=== PATIENT | female | born 1965 | race Two or more races ===

== ENCOUNTER 2017-07-24 09:36 | Emergency (ER) | payer MEDICARE, MEDICAID ==
[2017-07-24] MEDS ORDERED: Pseudoephedrine HCL ER TAB* 120 MG PO ONE (10:16)
[2017-07-24 11:01] VITALS: BP 121/81
--- NOTE | 2017-07-24 11:03 | ED ---
Throat Pain/Nasal Congestion - HPI Summary HPI Summary: Pt here w/ URI sx x few days. Yesterday, Lt ear started hurting - persist today. Sneezing, coughing (dry - non-productive), nasal congestion, ST ( dysphagia), nausea, low grade BARON. Denies fever, chills, vomiting, ab pain, neck stiffness, rash. She tried dayquil today and sx are little better. Imms are UTD -no sick contacts to report. - History of Current Complaint Chief Complaint: EDGeneral Time Seen by Provider: 07/24/17 10:08 Hx Obtained From: Patient - Allergies/Home Medications Allergies/Adverse Reactions: Allergies Allergy/AdvReac Type Severity Reaction Status Date / Time Ibuprofen Allergy Mild Edema Verified 11/02/15 15:18 Latex Allergy Hives Verified 11/02/15 15:18 PMH/Surg Hx/FS Hx/Imm Hx Previously Healthy: Yes Endocrine/Hematology History: Reports: Hx Anemia Denies: Hx Anticoagulant Therapy, Hx Diabetes, Hx Thyroid Disease Cardiovascular History: Denies: Hx Hypertension, Hx Pacemaker/ICD Respiratory History: Denies: Hx Asthma, Hx Chronic Obstructive Pulmonary Disease (COPD) History: Denies: Hx Renal Disease Sensory History: Denies: Hx Contacts or Glasses, Hx Hearing Aid Opthamlomology History: Denies: Hx Contacts or Glasses Neurological History: Reports: Hx Headaches, Hx Migraine - 3 X PER MONTH Denies: Hx Dementia, Hx Seizures Psychiatric History: Reports: Hx Anxiety - ON MEDICATION FOR, Hx Depression Denies: Hx Panic Disorder, Hx Substance Abuse - Surgical History Surgery Procedure, Year, and Place: 1989. Ever breast reduction 2001. Cholecystectomy due to stones 2003. Tubal ligation 1993. hysterectomy Hx Anesthesia Reactions: No Infectious Disease History: No Infectious Disease History: Denies: Hx Hepatitis, Hx Human Immunodeficiency Virus (HIV), Traveled Outside the [place] in Last 30 Days - Social History Occupation: Employed Full-time Lives: With Family Alcohol Use: None Hx Substance Use: No Substance Use Type: Reports: None Hx Tobacco Use: Yes Smoking Status (MU): Current Every Day Smoker Amount Used/How Often: 3-7 cigs per day Review of Systems Constitutional: Negative Eyes: Negative Positive: Sore Throat, Ear Ache, Nasal Discharge Cardiovascular: Negative Positive: Cough. Negative: Shortness Of Breath Positive: Nausea. Negative: Abdominal Pain, Vomiting, Diarrhea Positive: no symptoms reported Musculoskeletal: Negative Skin: Negative Positive: Headache - se HPI. Negative: Weakness, Paresthesia, Numbness, Syncope , Slurred Speech Psychological: Normal All Other Systems Reviewed And Are Negative: Yes Physical Exam Triage Information Reviewed: Yes Vital Signs On Initial Exam: Initial Vitals Temp Pulse Resp BP Pulse Ox 97.4 F 93 20 136/70 98 07/24/17 09:39 07/24/17 09:39 07/24/17 09:39 07/24/17 09:39 07/24/17 09:39 Vital Signs Reviewed: Yes Appearance: Positive: Well-Appearing, No Pain Distress, Well-Nourished Skin: Positive: Warm, Dry Head/Face: Positive: Normal Head/Face Inspection - sinuses NTTP Eyes: Positive: Normal, EOMI, Conjunctiva Clear. Negative: Conjunctiva Inflammed, Discharge ENT: Positive: Hearing grossly normal, Pharyngeal erythema - mild - no edema, Nasal congestion - erythema, mucous, edema, TM red - Lt TM w/ erythema and clear fluid w/ bubble - no hyperemia, no d/c, no lesions appreciated, no d/c, NTTP; mastoid NTTP. Negative: Tonsillar swelling, Tonsillar exudate Neck: Positive: Supple, No Lymphadenopathy, Tenderness @ - Lt cc TTP Respiratory/Lung Sounds: Positive: Clear to Auscultation, Breath Sounds Present. Negative: Rales, Rhonchi, Stridor, Wheezes Cardiovascular: Positive: Normal, RRR, S1, S2 Abdomen Description: Positive: Nontender, No Organomegaly, Soft Bowel Sounds: Positive: Present Musculoskeletal: Positive: Normal, Strength/ROM Intact Neurological: Positive: Normal, Sensory/Motor Intact, Alert, Oriented to Person Place, Time, CN Intact II-III Psychiatric: Positive: Normal - [place] Coma Scale Coma Scale Total: 15 Diagnostics - Vital Signs Vital Signs Temp Pulse Resp BP Pulse Ox 07/24/17 09:39 97.4 F 93 20 136/70 98 - Laboratory Lab Statement: Any lab studies that have been ordered have been reviewed, and results considered in the medical decision making process. EENT Course/Dx - Course Course Of Treatment: Suspect viral URI w/ secondary eustachian tube dysfunction from congestion/edema of upper airways. SUggested conservative care and f/u w/ PCP if pain in Lt ear persists or worsens. - Diagnoses Provider Diagnoses: Eustachian tube dysfunction, Acute serous otitis media of left ear Discharge - Discharge Plan Condition: Stable Disposition: HOME Patient Education Materials: Upper Respiratory Infection (ED), Serous Otitis Media (ED) Forms: *Work Release Referrals: Steve Holden MD [Primary Care Provider] - Additional Instructions: You appear to have viral URI Try the following for comfort care: Nasal wash (netti pot) & throat gargle 2 x day with 8 ounces of warm water + 1/ 4 teaspoon of salt Sudafed for decongestion to help with ear pain, prevent bacterial infection of inner ear Afrin nasal for congestion - DO NOT USE MORE THAN PRESCRIBED IN DIRECTIONS Drink 60+ ounces of water daily Sleep 8+ hours per night Avoid Dairy and sugar Hot herbal/decaf tea with lemon & honey Chicken broth (preferably organic, free range chicken) Humidifier in house, but especially near bed at night Try a facial steam with or without eucalyptus essential oil - Prem vapor rub Cough drops Consider taking Vitamin D3 5,000iu and Vitamin C 1,000mg every day during illness *If symptoms persist or worsen, follow-up with PCP *If you develop chest pain, difficulty breathing or swallowing, return to ED
== END 2017-07-24 11:47 | disposition home or self-care (01) ==
LOC: ED 09:36
DX: H69.90 Unspecified Eustachian tube disorder, unspecified ear (principal); H65.02 Acute serous otitis media, left ear; J02.9 Acute pharyngitis, unspecified; H92.09 Otalgia, unspecified ear; F17.210 Nicotine dependence, cigarettes, uncomplicated
CPT/HCPCS: 87651; 99282; A9270-GY

== ENCOUNTER 2017-10-26 12:52 | Emergency (ER) | payer MEDICARE, MEDICAID ==
[2017-10-26] MEDS ORDERED: Cyclobenzaprine TAB* 10 MG PO ONE (17:04)
[2017-10-26] MEDS ORDERED: Naproxen TAB* 250 MG PO ONE (17:05)
[2017-10-26 17:29] LABS: Urine Appearance Clear; Urine Blood 1+ (Negative); Urine Color Straw; Urine Ketones Negative (Negative); Urine Protein Negative (Negative); Urine Specific Gravity 1.003 (1.010-1.030); Urine Urobilinogen Negative (Negative)
[2017-10-26 18:04] VITALS: BP 142/80
--- NOTE | 2017-10-26 23:20 | ED ---
Back Pain - HPI Summary HPI Summary: Patient is a 52-year-old female with a history of herniated disks to which she collects disability for a ride to the ED with left-sided lower back pain. Denies any urinary sit symptoms including obstructive symptoms. She has had this in the past and has tried heat with mild relief. She feels as though it is spasming, pain is 3 out of 10, worse with sitting up straight or lying flat and better with standing. Denies any fevers, sweats, chills. Denies any numbness or tingling. Denies bladder or bowel dysfunction. She denies any spinal tenderness to palpation. She has not tried any medications for relief. She has been otherwise healthy, and denies any recent illness. Denies any known injury or trauma. Denies any history of kidney pathology or urinary symptoms. - History of Current Complaint Chief Complaint: EDBackInjuryPain Stated Complaint: BACK PAIN Time Seen by Provider: 10/26/17 15:18 Hx Obtained From: Patient Onset/Duration: Sudden Onset Onset/Duration: Started Hours Ago Timing: Constant Severity Initially: Moderate Severity Currently: Moderate Pain Intensity: 4 Pain Scale Used: 0-10 Numeric Character: Aching Aggravating Symptom(s): Movement, Bending Alleviating Symptom(s): Rest, Position Associated Signs And Symptoms: Positive: Negative. Negative: Swelling, Redness , Bruising, Numbness, Tingling, Abdominal Pain, Flank Pain, Bladder Incontinence , Bowel Incontinence, Weight Loss, Pain with Weight Bearing Related History: Occupational Injury, Previous Back Injury - Risk Factors AAA Risk Factors: Negative TAD Risk Factors: Negative Cauda Equina Risk Factors: Negative Epidural Abscess Risk Factors: Negative - Allergies/Home Medications Allergies/Adverse Reactions: Allergies Allergy/AdvReac Type Severity Reaction Status Date / Time MS Ibuprofen [Ibuprofen] Allergy Mild Edema Verified 10/26/17 15:10 MS Latex [Latex] Allergy Hives Verified 10/26/17 15:10 PMH/Surg Hx/FS Hx/Imm Hx Previously Healthy: Yes Endocrine/Hematology History: Reports: Hx Anemia Denies: Hx Anticoagulant Therapy, Hx Diabetes, Hx Thyroid Disease Cardiovascular History: Denies: Hx Hypertension, Hx Pacemaker/ICD Respiratory History: Denies: Hx Asthma, Hx Chronic Obstructive Pulmonary Disease (COPD) History: Denies: Hx Renal Disease Sensory History: Denies: Hx Contacts or Glasses, Hx Hearing Aid Opthamlomology History: Denies: Hx Contacts or Glasses Neurological History: Reports: Hx Headaches, Hx Migraine - 3 X PER MONTH Denies: Hx Dementia, Hx Seizures Psychiatric History: Reports: Hx Anxiety - ON MEDICATION FOR, Hx Depression Denies: Hx Panic Disorder, Hx Substance Abuse - Surgical History Surgery Procedure, Year, and Place: 1989. Ever breast reduction 2001. Cholecystectomy due to stones 2003. Tubal ligation 1993. hysterectomy Hx Anesthesia Reactions: No - Immunization History Hx Pertussis Vaccination: No Immunizations Up to Date: Unable to Obtain/Confirm Infectious Disease History: No Infectious Disease History: Denies: Hx Hepatitis, Hx Human Immunodeficiency Virus (HIV), Traveled Outside the [place] in Last 30 Days - Social History Occupation: Disabled Lives: With Family Alcohol Use: None Hx Substance Use: No Substance Use Type: Reports: None Hx Tobacco Use: Yes Smoking Status (MU): Current Every Day Smoker Amount Used/How Often: 3-7 cigs per day Review of Systems Constitutional: Negative Negative: Fever, Chills, Fatigue Cardiovascular: Negative Respiratory: Negative Genitourinary: Negative Positive: no symptoms reported, see HPI Positive: Arthralgia - left low back pain, worse on palpation Skin: Negative Neurological: Negative Negative: Weakness, Paresthesia, Numbness All Other Systems Reviewed And Are Negative: Yes Physical Exam Triage Information Reviewed: Yes Vital Signs On Initial Exam: Initial Vitals Temp Pulse Resp BP Pulse Ox 98.3 F 95 18 138/84 99 10/26/17 12:59 10/26/17 12:59 10/26/17 12:59 10/26/17 12:59 10/26/17 12:59 Vital Signs Reviewed: Yes Appearance: Positive: Well-Appearing - Despite 5 out of 10 spasmodic pain, patient appears to be in no acute distress, Well-Nourished Skin: Positive: Warm, Skin Color Reflects Adequate Perfusion Head/Face: Positive: Normal Head/Face Inspection Eyes: Positive: EOMI, JITENDRA Neck: Positive: Supple, Nontender, No Lymphadenopathy Respiratory/Lung Sounds: Positive: Clear to Auscultation, Breath Sounds Present Cardiovascular: Positive: Normal, RRR, Pulses are Symmetrical in both Upper and Lower Extremities Musculoskeletal: Positive: Pain @ - Left low back on deep palpation, no CVA tenderness bilaterally Neurological: Positive: Speech Normal Psychiatric: Positive: Normal, Affect/Mood Appropriate AVPU Assessment: Alert Diagnostics - Vital Signs Vital Signs Temp Pulse Resp BP Pulse Ox 10/26/17 18:03 98.7 F 80 16 142/80 100 10/26/17 12:59 98.3 F 95 18 138/84 99 - Laboratory Lab Results: Lab Results 10/26/17 Range/Units 17:05 Urine Color Straw Urine Appearance Clear Urine pH 7.0 (5-9) Ur Specific [place] 1.003 L (1.010-1.030) Urine Protein Negative (Negative) Urine Ketones Negative (Negative) Urine Blood 1+ H (Negative) Urine Nitrate Negative (Negative) Urine Bilirubin Negative (Negative) Urine Urobilinogen Negative (Negative) Ur Leukocyte Esterase Negative (Negative) Urine WBC (Auto) Trace(0-5/hpf) (Absent) Urine RBC (Auto) Trace(0-2/hpf) (Absent) Ur Squamous Epith Cells Present H (Absent) Urine Bacteria 1+ H (Absent) Urine Glucose Negative (Negative) Lab Statement: Any lab studies that have been ordered have been reviewed, and results considered in the medical decision making process. Back Pain Course/Dx - Course Course Of Treatment: During the course of treatment, the patient is evaluated for acute left-sided low back pain. UA obtained and negative for any findings suggestive of kidney pathology. Patient denies any history of kidney stones, hydronephrosis or urinary tract infections. History of low back pain, usually presenting as spinal pain but sometimes radiates over to the left or the right low back. Today, she endorses pain to the left lower back described as spasming , 5 out of 10. Heat with improvement. Symptoms are aggravated with sitting, alleviated with standing and positioning. I do not believe a CT is warranted at this time as this is normal for her confirmed herniated disks. She is encouraged ibuprofen 600 mg 3 times daily and Flexeril 10 mg twice daily is prescribed to her at this time. Encouraged moist heat and gentle stretches and massage. Patient voices no concerns at this time and is okay with the discharge plan. She will follow-up with her PCP for any worsening or differing symptoms. - Diagnoses Provider Diagnoses: Spasm of back muscles Discharge - Discharge Plan Condition: Stable Disposition: HOME Prescriptions: Cyclobenzaprine TAB* [Flexeril TAB*] 10 mg PO BID PRN #15 tab PRN Reason: Pain Patient Education Materials: Muscle Spasm (ED) Referrals: Steve Holden MD [Primary Care Provider] - Additional Instructions: I recommend ibuprofen 600 mg 3 times daily Moist heat to the area several times per day Low back exercises Massage Flexeril twice daily as needed for any muscle spasms or pain
== END 2017-10-26 18:03 | disposition home or self-care (01) ==
LOC: ED 12:52
DX: M62.830 Muscle spasm of back (principal); F17.210 Nicotine dependence, cigarettes, uncomplicated
CPT/HCPCS: 81003; 81015; 87086; 99282; A9270-GY

== ENCOUNTER 2018-12-07 00:01 | Inpatient (IN) | payer MEDICARE, MEDICAID ==
--- NOTE | 2018-12-07 00:21 | ED ---
Psychiatric Complaint - HPI Summary HPI Summary: Patient is a 53 y/o female who presents to the ED c/o depression. She attempted suicide last week by taking Trazodone, Ambien, and Latuda in [place]. Patient states this happened because she stopped taking her prescribed medications. Patient had her stomach pumped and was given charcoal at the local hospital, but left AMA. She is originally from [place] but moved to [place]. Patient came back to [place] with her children to try to feel better, however she still feels suicidal, depressed, and anxious. PMHx anxiety, depression, bipolar disorder, suicide attempt. She denies any drug or alcohol use, and states she only uses her medications as prescribed. Patient is a smoker. - History Of Current Complaint Chief Complaint: EDMentalHealth Time Seen by Provider: 12/07/18 00:19 Hx Obtained From: Patient Onset/Duration: Gradual Onset, Still Present Timing: Constant Character: Depressed, Anxious Aggravating Factor(s): Medication Non-compliance Alleviating Factor(s): Nothing Has Suicidal: Reports: Thoughts, Has Prior Attempt(s) - Allergies/Home Medications Allergies/Adverse Reactions: Allergies Allergy/AdvReac Type Severity Reaction Status Date / Time ibuprofen Allergy Edema Verified 12/07/18 00:36 latex Allergy Hives Verified 12/07/18 00:36 Home Medications: Home Medications Cariprazine [Vraylar] 4.5 mg PO BEDTIME 12/07/18 [History Confirmed 12/07/18] clonazePAM TAB(*) [KlonoPIN TAB(*)] 0.5 mg PO TID PRN 12/07/18 [History Confirmed 12/07/18] PMH/Surg Hx/FS Hx/Imm Hx Endocrine/Hematology History: Reports: Hx Anemia Denies: Hx Anticoagulant Therapy, Hx Diabetes, Hx Thyroid Disease Cardiovascular History: Denies: Hx Hypertension, Hx Pacemaker/ICD Respiratory History: Denies: Hx Asthma, Hx Chronic Obstructive Pulmonary Disease (COPD) History: Denies: Hx Renal Disease Sensory History: Denies: Hx Contacts or Glasses, Hx Hearing Aid Opthamlomology History: Denies: Hx Contacts or Glasses Neurological History: Reports: Hx Headaches, Hx Migraine - 3 X PER MONTH Denies: Hx Dementia, Hx Seizures Psychiatric History: Reports: Hx Anxiety - ON MEDICATION FOR, Hx Depression, Hx Bipolar Disorder, Hx Suicide Attempt Denies: Hx Panic Disorder, Hx Substance Abuse - Surgical History Surgery Procedure, Year, and Place: 1989. Ever breast reduction 2001. Cholecystectomy due to stones 2003. Tubal ligation 1993. hysterectomy Hx Anesthesia Reactions: No Infectious Disease History: No Infectious Disease History: Denies: Hx Hepatitis, Hx Human Immunodeficiency Virus (HIV), Traveled Outside the [place] in Last 30 Days - Family History Known Family History: Positive: Cardiac Disease, Hypertension Negative: Other - mental health issues, suicides - Social History Alcohol Use: None Hx Substance Use: No Substance Use Type: Reports: None Hx Tobacco Use: Yes Smoking Status (MU): Current Every Day Smoker Amount Used/How Often: 3-7 cigs per day Review of Systems Negative: Fever Positive: Anxious, Depressed, Other - SI All Other Systems Reviewed And Are Negative: Yes Physical Exam - Summary Physical Exam Summary: Appearance: Well appearing, no pain distress Skin: warm, dry, reflects adequate perfusion Head/face: normal Eyes: EOMI, JITENDRA ENT: mucous membranes moist Neck: supple, non-tender Respiratory: CTA, breath sounds present Cardiovascular: RRR, pulses symmetrical Abdomen: non-tender, soft Bowel Sounds: present Musculoskeletal: normal, strength/ROM intact Neuro: normal, sensory motor intact, A&Ox3 Psych: mildly flat affect Triage Information Reviewed: Yes Vital Signs On Initial Exam: Initial Vitals Temp Pulse Resp BP Pulse Ox 98.5 F 82 16 132/91 99 12/07/18 00:03 12/07/18 00:03 12/07/18 00:03 12/07/18 00:03 12/07/18 00:03 Vital Signs Reviewed: Yes Diagnostics - Vital Signs Vital Signs Temp Pulse Resp BP Pulse Ox 12/07/18 00:03 98.5 F 82 16 132/91 99 - Laboratory Result Diagrams: 12/07/18 00:40 12/07/18 00:40 Lab Statement: Any lab studies that have been ordered have been reviewed, and results considered in the medical decision making process. - EKG 00:50 Cardiac Rate: NL - 65 bpm EKG Rhythm: Sinus Rhythm ST Segment: Normal Summary of EKG Findings: Nl axis, nl intervals Re-Evaluation - Re-Evaluation First Eval Re-Evaluation Time: 00:36 Change: Unchanged Comment: Medically cleared for a MHE. Course/Dx - Course Course Of Treatment: Nurse's notes reviewed. Medical clearance was performed including measurement of her lithium level which was in therapeutic range. She is medically cleared for psychiatric evaluation. Following this crisis evaluation it was elected that she be admitted on a voluntary basis to mental health. - Differential Dx/Clinical Impression Differential Diagnosis/HQI/PQRI: Positive: Anxiety, Bipolar Disorder, Depression , Suicidal Ideation Provider Diagnosis: Depressive episode, Bipolar disorder - Physician Notifications Discussed Care Of Patient With: Shamar Argueta Time Discussed With Above Provider: 03:00 Instructed by Provider To: Admit As Inpatient - Voluntary admission. Discharge - Sign-Out/Discharge Documenting (check all that apply): Patient Departure - Admit Patient Received Moderate/Deep Sedation with Procedure: No - Discharge Plan Condition: Stable [place] [place]: Steve Holden MD [Primary Care Provider] - - Billing Disposition and Condition Condition: STABLE Disposition[place] [facility] [place] Attestation Statements Document Initiated by Scribe: Yes Documenting Scribe: Diana Abrams Provider For Whom Scribe is Documenting (Include Credential): Nicolás Cruz MD Scribe Attestation: Diana Saeed, scribed for Nicolás Cruz MD on 12/07/18 at 0341. Scribe Documentation Reviewed: Yes Provider Attestation: The documentation as recorded by the Diana roth accurately reflects the service I personally performed and the decisions made by , Nicolás Cruz MD Status of Scribe Document: Viewed
[2018-12-07 00:58] LABS: Hematocrit 42 % (33-41); Hemoglobin 13.1 g/dL (12.0-16.0); Mean Corpuscular HGB Conc 32 g/dL (31-36); Mean Corpuscular Hemoglobin 22 pg (27-31); Mean Corpuscular Volume 70 fL (80-97); Red Blood Count 5.92 10^6 /uL (3.70-4.87); Red Cell Distribution Width 15 % (10.5-15); White Blood Count 6.3 10^3/uL (3.5-10.8)
[2018-12-07 01:04] LABS: Urine Appearance Cloudy; Urine Bacteria Absent (Absent); Urine Bilirubin Negative (Negative); Urine Blood 3+ (Negative); Urine Color Yellow; Urine Glucose Negative (Negative); Urine Ketones Negative (Negative); Urine Nitrite Negative (Negative); Urine Protein Negative (Negative); Urine Red Blood Cell 3+(>10/hpf) (Absent); Urine Specific Gravity 1.016 (1.010-1.030); Urine Squamous Epithelial Cell Present (Absent); Urine Urobilinogen Negative (Negative); Urine White Blood Cell Trace(0-5/hpf) (Absent)
[2018-12-07 01:07] LABS: ABS Neutrophils 3.1 10^3/ul (1.5-7.7)
[2018-12-07 01:08] LABS: ALT 24 U/L (7-52); AST 24 U/L (13-39); Albumin 4.3 g/dL (3.2-5.2); Albumin/Globulin Ratio 1.4 (1-3); Alkaline Phosphatase 70 U/L (34-104); Anion Gap 9 mmol/L (2-11); Barbiturates Urine Screen None Detected (None Detect); Benzodiazepine Urine Screen None Detected (None Detect); Blood Urea Nitrogen 7 mg/dL (6-24); CO2 Carbon Dioxide 21 mmol/L (22-32); Calcium 9.3 mg/dL (8.6-10.3); Chloride 105 mmol/L (101-111); EGFR African American 106.7 (>60); EGFR Non-African American 88.2 (>60); Glucose 133 mg/dL (70-100); Potassium 3.2 mmol/L (3.5-5.0); Sodium 135 mmol/L (135-145); Total Protein 7.3 g/dL (6.4-8.9); Urine Cannabinoids Screen Presumptive Positive (None Detect)
[2018-12-07 01:14] LABS: Acetaminophen < 15 mcg/mL; Alcohol < 10 mg/dL (<10); Lithium 0.92 mmol/L (0.6-1.2)
[2018-12-07 01:26] LABS: ABS Basophils 0 10^3/ul (0-0.2); ABS Eosinophils 0 10^3/ul (0-0.6); ABS Lymphocytes 2.4 10^3/ul (1.0-4.8); ABS Monocytes 0.8 10^3/ul (0-0.8); ABS Nucleated RBC 0 10^3/ul; Eosinophil % 0.8 %; Lymphocyte % 37.7 %; Mean Platelet Volume 9.2 fL (7.4-10.4); Nucleated Red Blood Cells % 0.1; Platelet Count 246 10^3/uL (150-450)
[2018-12-07 01:27] LABS: Large Platelets Present
[2018-12-07 01:29] LABS: TSH (Thyroid Stimulating Horm) 2.05 mcIU/mL (0.34-5.60)
[2018-12-07] MEDS ORDERED: Mouth Piece, Nicotine* 1 EACH CARTRIDGE INH PRN (01:30)
[2018-12-07] MEDS ORDERED: Al Hydrox/Mg Hydrox/Simet LIQ* 30 ML UDC PO PRN (03:24)
[2018-12-07] MEDS: clonazePAM TAB(*) 0.5 MG PO PRN (10:38)
[2018-12-07] MEDS: Lithium Carbonate TAB* 300 MG PO SCH (10:38)
[2018-12-07] MEDS: Multivitamins/Minerals TAB PO SCH (10:38)
[2018-12-07] MEDS: Nicotine PATCH 21 MG/24 HR* PATCH TRANSDERM SCH (10:39)
[2018-12-07] MEDS: Acetaminophen TAB* 325 MG PO PRN (11:10)
[2018-12-07] MEDS: Nicotine Inhaler* 10 MG AMP INH PRN (11:11)
[2018-12-07] MEDS ORDERED: Potassium Chlor TAB* 20 MEQ TAB.ER PO ONE (14:11)
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
[2018-12-07] MEDS: clonazePAM TAB(*) 1 MG PO SCH (21:01)
[2018-12-07] MEDS: CARIPRAZINE 1.5 MG PO SCH (21:02)
[2018-12-07] MEDS: Zolpidem TAB* 10 MG PO PRN (21:12)
[2018-12-07] MEDS: Nicotine Patch Removal NOTE FOLLOW UP SCH (21:12)
[2018-12-08] MEDS: Lithium Carbonate TAB* 300 MG PO SCH (09:40)
[2018-12-08] MEDS: Multivitamins/Minerals TAB PO SCH (09:40)
[2018-12-08] MEDS: clonazePAM TAB(*) 0.5 MG PO PRN (09:41)
[2018-12-08] MEDS: Nicotine PATCH 21 MG/24 HR* PATCH TRANSDERM SCH (09:46)
[2018-12-08] MEDS: Nicotine Inhaler* 10 MG AMP INH PRN ×2 (10:51→21:19)
--- NOTE | 2018-12-08 14:58 | PN ---
Subjective - Subjective Date of Service: 12/08/18 Service Type: [id number] Hosp care 15 min low complexity Subjective: Ghada submitted a request to discharge around noon today. She reports she has to get to [place] to prepare to return to [place]. She reports she last had SI 4 days ago, and if feeling better since resuming lithium and other meds at that time. She denies currently any SI, HI, psychotic symptoms or any other acute safety concerns. She reports sleeping and eating well. She reports having been 'out of it' when she came to the hospital, and feeling well recovered now. Objective - Appearance Appearance: Well Developed/Nourished Dysmorphic Features: No Hygiene: Normal Grooming: Fairly Well Kept - Behavior Psychomotor Activities: Normal Exhibits Abnormal Movement: No - Attitude and Relatedness Attitude and Relatedness: Well Related Eye Contact: Good - Speech Quality: Unpressured Latencies: Normal Quantity: Appropriate - Mood Patient's Decription of Mood: "Happy" - Affect Observed Affect: Good Affect Consistent with: Euthymia - Thought Process Patient's Thought Process: Coherent, Goal Directed Thought Content: No Passive Wish, No Suicidal Planning, No Homicidal Ideation, No Paranoid Ideation - Sensorium Experiencing Hallucinations: No, Sensorium is Clear - Level of Consciousness Level of Consciousness: Alert Orientation: Yes Intact, Yes Orientated to Time, Yes Orientated to Place, Yes Orientated to Person - Impulse Control Impulse Control: Intact - Insight and Judgement Insight and Judgement: Fair - Group Participation Particating in Group Activities: Yes - Medication Management Medication Management Adherence: Yes Assessment - Assessment Merits Inpatient Hospitalization: For Stabilization, For Discharge Planning Clinical Impression: Ghada requests discharge on Monday, having submitted her '72 hour' letter. She reports sustained remission of SI, 'happy' mood without sign of euphoria, good sleep. She is med adherent and attending groups. She denies any acute safety concerns, and is bright and future-oriented. Plan - Plan Treatment Plan: Name: GHADA ARREDONDO Birthdate: 1965 [id number] continue current plan. Will have until mid-day Monday to resolve 3 day notice issue with discharge, retraction or court filing. Continued Medication Management: Continue Outpt Medication Medications: Current Medications Acetaminophen (Tylenol Tab*) 650 mg PO Q4H PRN PRN Reason: PAIN; OR TEMP>101 Last Admin: 12/07/18 11:10 Dose: 650 mg Al Hydrox/Mg Hydrox/Simethicone (Maalox Plus*) 30 ml PO Q4H PRN PRN Reason: INDIGESTION Clonazepam (Klonopin Tab(*)) 0.5 mg PO BID PRN PRN Reason: ANXIETY Last Admin: 12/08/18 09:41 Dose: 0.5 mg Clonazepam (Klonopin Tab(*)) 1 mg PO BEDTIME [facility] Last Admin: 12/07/18 21:01 Dose: 1 mg Device (Nicotine Mouth Piece*) 1 each INH .USE W/ CARTRIDGE PRN PRN Reason: WITHDRAWAL - NICOTINE Last Admin: 12/07/18 11:11 Dose: 1 each Paragould Carbonate (Paragould Carbonate Tab*) 900 mg PO DAILY [facility] Last Admin: 12/08/18 09:40 Dose: 900 mg Multivitamins/Minerals (Theragran/Minerals Tab*) 1 tab PO DAILY [facility] Last Admin: 12/08/18 09:40 Dose: 1 tab Nicotine (Nicotine Inhaler*) 10 mg INH Q2H PRN PRN Reason: CRAVING Last Admin: 12/08/18 10:51 Dose: 10 mg Nicotine (Nicotine Patch 21 Mg/24 Hr*) 1 patch TRANSDERM DAILY [facility] Last Admin: 12/08/18 09:46 Dose: 1 patch Nicotine Polacrilex (Nicotine Gum*) 2 mg PO Q2H PRN PRN Reason: CRAVING Pto Nf Med* Cariprazine 1.5mg Capsule (Vraylar) 1 dose PO BEDTIME [facility] Last Admin: 12/07/18 21:02 Dose: 1 dose Pharmacy Profile Note (Nicotine Patch Removal Note*) 1 note FOLLOW UP [address] Last Admin: 12/07/18 21:12 Dose: 1 note Zolpidem Tartrate (Ambien Tab*) 10 mg PO BEDTIME PRN PRN Reason: INSOMNIA Last Admin: 12/07/18 21:12 Dose: 10 mg - Discharge Plan Discharge Plan: Outpatient Follow Up Outpatient Program: [facility]
[2018-12-08] MEDS: clonazePAM TAB(*) 1 MG PO SCH (21:13)
[2018-12-08] MEDS: CARIPRAZINE 1.5 MG PO SCH (21:15)
[2018-12-08] MEDS: Nicotine Patch Removal NOTE FOLLOW UP SCH (21:16)
[2018-12-08] MEDS: Zolpidem TAB* 10 MG PO PRN (21:19)
[2018-12-09] MEDS: Multivitamins/Minerals TAB PO SCH (08:59)
[2018-12-09] MEDS: Acetaminophen TAB* 325 MG PO PRN ×2 (08:59→16:17)
[2018-12-09] MEDS: Lithium Carbonate TAB* 300 MG PO SCH (08:59)
[2018-12-09] MEDS: clonazePAM TAB(*) 0.5 MG PO PRN (09:01)
[2018-12-09] MEDS: Nicotine PATCH 21 MG/24 HR* PATCH TRANSDERM SCH (09:02)
--- NOTE | 2018-12-09 19:04 | PN ---
Hospitalist Progress Note Date of Service: 12/09/18 Called for consult d/t symptoms concerning for UTI. Ms. Altamirano reports 2-3 days of LLQ pain radiating to her left lower back. She has associated urinary frequency and some hesitancy. Reports foul smelling urine. No recent changes in diet. She has had UTIs in the past, but nothing recent. She remembers similar symptoms during past episodes. Pleasant female in NAD. Positive left CVA tenderness. Abd SNT. LLQ and suprapubic tender on palpation. No fevers and VS have been stable. CBC and UA on admission were WNL except for some RBCs in the urine. Urine culture on 12/07/18 negative. Low suspicion for UTI given recent negative UA and culture. Physical exam concerning for pyelonephritis or nephrolithiasis d/t CVA tenderness. Recommendations: - Recheck CBC and UA - CT abd/pelvis noncontrast I will f/u these results in the morning and make any further recommendations at that time. Thank you for this consultation.
[2018-12-09 19:16] LABS: Urine Appearance Clear; Urine Bacteria Absent (Absent); Urine Bilirubin Negative (Negative); Urine Blood 1+ (Negative); Urine Color Yellow; Urine Glucose Negative (Negative); Urine Ketones Negative (Negative); Urine Nitrite Negative (Negative); Urine Protein Negative (Negative); Urine Red Blood Cell Absent (Absent); Urine Specific Gravity 1.014 (1.010-1.030); Urine Squamous Epithelial Cell Present (Absent); Urine Urobilinogen Negative (Negative); Urine White Blood Cell Absent (Absent)
[2018-12-09] MEDS: clonazePAM TAB(*) 1 MG PO SCH (21:09)
[2018-12-09] MEDS: CARIPRAZINE 1.5 MG PO SCH (21:10)
[2018-12-09] MEDS: Zolpidem TAB* 10 MG PO PRN (21:12)
[2018-12-09] MEDS: Nicotine Patch Removal NOTE FOLLOW UP SCH (21:14)
[2018-12-10] MEDS: clonazePAM TAB(*) 0.5 MG PO PRN (03:20)
[2018-12-10 07:43] LABS: ABS Basophils 0 10^3/ul (0-0.2); ABS Eosinophils 0.1 10^3/ul (0-0.6); ABS Lymphocytes 3.5 10^3/ul (1.0-4.8); ABS Monocytes 0.7 10^3/ul (0-0.8); ABS Neutrophils 3.5 10^3/ul (1.5-7.7); ABS Nucleated RBC 0 10^3/ul; Eosinophil % 1.9 %; Hematocrit 40 % (33-41); Hemoglobin 12.5 g/dL (12.0-16.0); Lymphocyte % 44.3 %; Mean Corpuscular HGB Conc 31 g/dL (31-36); Mean Corpuscular Hemoglobin 22 pg (27-31); Mean Corpuscular Volume 70 fL (80-97); Mean Platelet Volume 9.2 fL (7.4-10.4); Nucleated Red Blood Cells % 0.1; Platelet Count 256 10^3/uL (150-450); Red Blood Count 5.74 10^6 /uL (3.70-4.87); Red Cell Distribution Width 15 % (10.5-15); White Blood Count 7.9 10^3/uL (3.5-10.8)
[2018-12-10 08:26] VITALS: BP 139/71
[2018-12-10] MEDS: Lithium Carbonate TAB* 300 MG PO SCH (08:45)
[2018-12-10] MEDS: Nicotine PATCH 21 MG/24 HR* PATCH TRANSDERM SCH (08:46)
[2018-12-10] MEDS: Multivitamins/Minerals TAB PO SCH (08:46)
--- NOTE | 2018-12-10 09:57 | PN ---
Hospitalist Progress Note Date of Service: 12/10/18 Results reviewed: CT did not show any acute findings to correlate with patient's symptoms. UA negative, no further RBC. No leukocytosis. VS have remained stable and she has been afebrile. At this point there is no evidence of pyelonephritis, nephrolithiasis, or UTI. Possible that she may have already passed a kidney stone as that would explain her hematuria on previous UA. Would recommend monitoring symptoms over the next week or so. She indicated yesterday that she would be d/c'd today, so if symptoms persist, she should follow up with her PCP for further workup. Thank you for this consultation. Hospital Medicine will sign off at this time. If you have any further questions or concerns, please do not hesitate to contact me.
[2018-12-10] MEDS: Nicotine Inhaler* 10 MG AMP INH PRN ×2 (10:17→12:30)
[2018-12-10] MEDS: Nicotine GUM* 2 MG PO PRN ×2 (10:17→12:30)
== END 2018-12-10 13:05 | disposition home or self-care (01) | DRG 885 ==
LOC: ED 00:01 → BSU 02:33 → ED 03:35 → BSU 12-09 13:41
PROVIDERS: ADMIT Psychiatry & Neurology Psychiatry; ATTEND Psychiatry & Neurology Psychiatry
DX: F31.4 Bipolar disorder, current episode depressed, severe, without psychotic features (principal); R45.851 Suicidal ideations; R10.32 Left lower quadrant pain; F43.10 Post-traumatic stress disorder, unspecified; E78.00 Pure hypercholesterolemia, unspecified; F17.210 Nicotine dependence, cigarettes, uncomplicated; F12.90 Cannabis use, unspecified, uncomplicated; Z79.899 Other long term (current) drug therapy; Z88.6 Allergy status to analgesic agent; Z81.8 Family history of other mental and behavioral disorders
CPT/HCPCS: 36415; 74176; 80053; 80178; 80307; 80320; 80329; 81003; 81015; 84443; 85025; 87086; 93005; 99222; 99231; 99238; 99285; A9270-GY; G0480

== ENCOUNTER 2022-10-31 12:41 | Observation (INO) ==
[2022-10-31 13:37] LABS: ABS Eosinophils 0.1 10^3/ul (0-0.6); ABS Lymphocytes 2.2 10^3/ul (1.0-4.8); ABS Monocytes 0.6 10^3/ul (0-0.8); ABS Neutrophils 5.2 10^3/ul (1.5-7.7); Eosinophil % 0.9 %; Hematocrit 40 % (35-47); Hemoglobin 12.4 g/dL (12.0-16.0); Lymphocyte % 27.5 %; Mean Corpuscular HGB Conc 31 g/dL (31-36); Mean Corpuscular Hemoglobin 21 pg (27-31); Mean Corpuscular Volume 68 fL (80-97); Mean Platelet Volume 8.5 fL (7.4-10.4); Nucleated Red Blood Cells % 0.1; Platelet Count 359 10^3/uL (150-450); Red Blood Count 5.83 10^6 /uL (3.70-4.87); Red Cell Distribution Width 16 % (10-15); White Blood Count 8.1 10^3/uL (3.5-10.8)
[2022-10-31 13:50] LABS: INR 1.04 (0.88-1.18)
[2022-10-31 13:55] LABS: High Sens Troponin Baseline < 3 pg/mL (<15)
[2022-10-31 14:12] LABS: ALT 49 U/L (7-52); AST 37 U/L (13-39); Albumin 4.1 g/dL (3.2-5.2); Albumin/Globulin Ratio 1.6 (1-3); Alkaline Phosphatase 72 U/L (35-149); Anion Gap 6 mmol/L (2-11); Blood Urea Nitrogen 10 mg/dL (6-24); CO2 Carbon Dioxide 28 mmol/L (22-32); Calcium 9.6 mg/dL (8.6-10.3); Chloride 107 mmol/L (101-111); Creatinine, Serum 0.71 mg/dL (0.51-0.95); Globulin 2.5 g/dL (2-4); Glucose 118 mg/dL (70-100); Potassium 3.7 mmol/L (3.5-5.0); Sodium 141 mmol/L (135-145); Total Protein 6.6 g/dL (6.4-8.9); eGFR CKD-EPI 100.3 (>60)
[2022-10-31 15:02] LABS: High Sensitivity Troponin 1 Hr 3 pg/mL (<15)
[2022-10-31] MEDS ORDERED: Iohexol 350 (CONTRAST) 500 ML MDV IV ONE (20:36)
[2022-10-31] MEDS ORDERED: Tetracaine 0.5% OPTH.SOL 4 ML BTL ONE (21:54)
[2022-11-01 00:09] VITALS: BP 138/83
== END 2022-11-01 01:53 | disposition left against medical advice (07) ==
LOC: ED 12:41 → EDHOLD 12:41
PROVIDERS: ADMIT Internal Medicine; ATTEND Internal Medicine